=== PATIENT | female | born 2000 | race Caucasian/White ===

== ENCOUNTER 2020-08-13 02:36 | Inpatient (IN) ==
[2020-08-13 01:08] LABS: Amphetamine Screen,Urine Negative ng/mL (Cutoff=1000); Barbiturate Screen,Urine Negative ng/mL (Cutoff=200); Benzodiazepines Screen,Urine Negative ng/mL (Cutoff=200); Cannabinoid Screen,Urine Negative ng/mL (Cutoff = 50); Cocaine Screen,Urine Negative ng/mL (Cutoff= 300); Opiate Screen,Urine Negative ng/mL (Cutoff=300); Phencyclidine Screen,Urine Negative ng/mL (Cutoff=25)
[2020-08-13 01:13] LABS: Basophils % 0.3 %; Eosinophils % 0.3 %; Hematocrit 34.9 % (35.3-44.9); Hemoglobin 11.2 g/dL (11.5-15.4); Immature Granulocytes % 0.3 % (0-4); Lymphocytes # 2.3 K/mcL (0.6-4.6); Lymphocytes % 22.1 %; Mean Corpuscular HGB Conc 32.1 g/dL (31.6-35.5); Mean Corpuscular Hemoglobin 28.3 pg (28.0-33.3); Mean Corpuscular Volume 88.1 fL (83.0-100.0); Mean Platelet Volume 10.4 fL (9.4-12.4); Monocytes # 0.7 K/mcL (0.0-1.3); Monocytes % 6.3 %; Neutrophils # 7.4 K/mcL (1.6-8.9); Platelet Count 314 K/mcL (140-400); Red Blood Count 3.96 M/mcL (3.82-4.97); Red Cell Distribution Width 12.6 % (11.5-14.5); Segmented Neutrophils % 70.7 %; White Blood Count 10.4 K/mcL (4.3-11.1)
[~2020-08-13 02:36] MED LIST: *HR* FentaNYL (PF) 100 MCG/2 ML VIAL EP ONE; *HR* FentaNYL (PF) 100 MCG/2 ML VIAL IVP PRN; Azithromycin 500 MG in 0.9 % Sodium Chloride 250 ML IVPB ONE; EPHEDrine 50 MG/ML VIAL IVP PRN; Epidural Premix (fent/bupiv) 110 ML EP ONE; Epidural Premix (fent/bupiv) 110 ML EP SCH; Famotidine 20 MG/2 ML VIAL IVP PRN; Lidocaine 1% 20 ML MDV INFILT PRN; Metoclopramide 10 MG/2 ML VIAL IVP PRN; Naloxone 0.4 MG/ML INJ IVP PRN; Ondansetron 4 MG/2 ML VIAL IVP PRN; Ringers Solution, Lactated 1,000 ML IVC SCH; Ropivacaine/PF 0.2% 20 ML VIAL EP ONE
[2020-08-13] MEDS ORDERED: Oxytocin 20 units/ LR 1000 mL 20 UNIT/1,000 ML BAG IVC SCH ×2 (04:30→12:57)
[2020-08-13] MEDS ORDERED: *HR* HYDROcodone/Acet 5/325 mg TABLET PO PRN (12:57)
[2020-08-13] MEDS ORDERED: Lanolin 7 G OINT...G. TP PRN (12:57)
[2020-08-13] MEDS ORDERED: Acetaminophen 325 MG TABLET PO PRN (12:57)
[2020-08-13] MEDS ORDERED: Benzocaine/Menthol 56 GM AEROSOL SPRAY TP PRN (12:57)
[2020-08-13] MEDS ORDERED: Measles/Mumps/Rubella Vacc 0.5 ML VIAL SQ PRN (12:57)
[2020-08-13] MEDS: Ibuprofen 600 MG TABLET PO PRN ×2 (13:49→20:04)
[2020-08-14] MEDS: Ibuprofen 600 MG TABLET PO PRN (07:33)
[2020-08-14 08:00] VITALS: BP 128/84
[2020-08-14] MEDS ORDERED: Prenatal Vit/FA 1 EACH TABLET PO SCH (09:00)
== END 2020-08-14 11:25 | disposition home or self-care (01) | DRG 560 ==
LOC: 1NENULAB → 1NENUOBS 12:49
PROVIDERS: ADMIT Registered Nurse; ATTEND Registered Nurse

== ENCOUNTER 2021-07-03 08:04 | Inpatient (IN) ==
[2021-07-03] MEDS ORDERED: Ondansetron 4 MG/2 ML VIAL IVP PRN (08:47)
[2021-07-03] MEDS ORDERED: *HR* Nalbuphine 10 MG/ML AMPUL IV PRN (08:47)
[2021-07-03] MEDS ORDERED: Famotidine 20 MG/2 ML VIAL IVP PRN (08:47)
[2021-07-03] MEDS ORDERED: Naloxone 0.4 MG/ML INJ IVP PRN (08:47)
[2021-07-03] MEDS ORDERED: Metoclopramide 10 MG/2 ML VIAL IVP PRN (08:47)
[2021-07-03] MEDS ORDERED: EPHEDrine 50 MG/ML VIAL IVP PRN (08:59)
[2021-07-03] MEDS ORDERED: Oxytocin 20 units/ LR 1000 mL 20 UNIT/1,000 ML BAG IVC SCH ×2 (09:00→16:15)
[2021-07-03] MEDS ORDERED: Epidural Premix (fent/bupiv) 110 ML EP SCH (09:00)
[2021-07-03 09:11] LABS: Basophils % 0.6 %; Eosinophils % 0.4 %; Hematocrit 33.3 % (35.3-44.9); Hemoglobin 10.7 g/dL (11.5-15.4); Immature Granulocytes % 0.3 % (0-4); Lymphocytes # 1.6 K/mcL (0.6-4.6); Lymphocytes % 23.1 %; Mean Corpuscular HGB Conc 32.1 g/dL (31.6-35.5); Mean Corpuscular Hemoglobin 26.5 pg (28.0-33.3); Mean Corpuscular Volume 82.4 fL (83.0-100.0); Mean Platelet Volume 10.7 fL (9.4-12.4); Monocytes # 0.4 K/mcL (0.0-1.3); Neutrophils # 4.9 K/mcL (1.6-8.9); Platelet Count 250 K/mcL (140-400); Red Blood Count 4.04 M/mcL (3.82-4.97); Red Cell Distribution Width 13.5 % (11.5-14.5); Segmented Neutrophils % 69.6 %
[2021-07-03 09:18] LABS: Amphetamine Screen,Urine Negative ng/mL (Cutoff=1000); Barbiturate Screen,Urine Negative ng/mL (Cutoff=200); Benzodiazepines Screen,Urine Negative ng/mL (Cutoff=200); Cannabinoid Screen,Urine Negative ng/mL (Cutoff = 50); Cocaine Screen,Urine Negative ng/mL (Cutoff= 300); Opiate Screen,Urine Negative ng/mL (Cutoff=300); Phencyclidine Screen,Urine Negative ng/mL (Cutoff=25)
[2021-07-03] MEDS: Ringers Solution, Lactated 1,000 ML IVC SCH ×2 (09:25→13:43)
[2021-07-03] MEDS ORDERED: *HR* Labetalol 20 MG/4 ML SYRINGE IVP ONE (14:20)
[2021-07-03] MEDS ORDERED: *HR* HYDROcodone/Acet 5/325 mg TABLET PO PRN (16:15)
[2021-07-03] MEDS ORDERED: Benzocaine/Menthol 56 GM AEROSOL SPRAY TP PRN (16:15)
[2021-07-03] MEDS ORDERED: Lanolin 7 G OINT...G. TP PRN (16:15)
[2021-07-03] MEDS ORDERED: Measles/Mumps/Rubella Vacc 0.5 ML VIAL SQ PRN (16:15)
[2021-07-03] MEDS ORDERED: Acetaminophen 325 MG TABLET PO PRN (16:15)
[2021-07-03] MEDS: Ibuprofen 600 MG TABLET PO PRN (18:41)
[2021-07-04] MEDS: Ibuprofen 600 MG TABLET PO PRN ×2 (07:28→15:01)
[2021-07-04 07:33] VITALS: BP 134/95; PULSE 53; TEMP 97.6; O2SAT 99
[2021-07-04] MEDS ORDERED: Prenatal Vit/FA 1 EACH TABLET PO SCH (09:00)
== END 2021-07-04 16:57 | disposition home or self-care (01) | DRG 542 ==
LOC: 1NENULAB 08:04 → 1NENUOBS 17:54
PROVIDERS: ADMIT Advanced Practice Midwife; ATTEND Advanced Practice Midwife